=== PATIENT | female | born 1990 | race African-American/Black ===

== ENCOUNTER 2020-02-26 19:38 | Emergency (ER) | payer MEDICAID, SELFPAY ==
[2020-02-26] MEDS ORDERED: Morphine 4 MG/ML VIAL ONE (20:08)
[2020-02-26] MEDS ORDERED: Ondansetron PF 4 MG/2 ML Vial ONE (20:08)
[2020-02-26] MEDS ORDERED: Ketorolac Tromethamine 30 MG/ML VIAL ONE (20:08)
[2020-02-26] MEDS ORDERED: diphenhydrAMINE 50 MG/ML VIAL ONE (20:11)
[2020-02-26] MEDS ORDERED: Haloperidol Lactate 5 MG/ML VIAL ONE (20:11)
[2020-02-26 20:56] LABS: Bacteria/HPF 3+ HPF (None Seen); Bilirubin Negative (Negative); Blood, Urine 3+ (Negative); Clarity Clear (Clear); Glucose, Urine (Dipstick) Normal (Negative); Ketone, Urine Negative (Negative); Leukocyte 75 Leu/uL (Negative); Mucous/LPF Rare LPF (<2+); Nitrite 2+ (Negative); Pregnancy Test - Urine (BHCG) Negative (Negative); Pregu Control Background? CLEAR/WHITE (CLR/WHITE); Pregu Control Bar Appear? YES (CONTROL BAR); Protein, Urine (Dipstick) 20 mg/dL (Neg-Trace); RBC/HPF 21-50 HPF (0-3); Specific Gravity 1.024 (1.002-1.036); Specific Gravity, Urine 1.024 (1.002-1.036); Squamous Epithelial 0-3 HPF (0-3); Urobilinogen Normal mg/dL (Less than 2); WBC/HPF 21-50 HPF (0-3); pH, Urine 7.5 (5.0-9.0)
[2020-02-26 21:04] LABS: Amphetamine Not Detected (NotDetected); Barbiturates Screen Not Detected (NotDetected); Benzodiazepine Screen Not Detected (NotDetected); Cocaine Metabolite Screen Not Detected (NotDetected); Medtox Reader # READER 4; Methadone Not Detected (NotDetected); Methamphetamine Not Detected (NotDetected); Opiate Screen Not Detected (NotDetected); Oxycodone Screen Not Detected (NotDetected); Phencyclidine (PCP) Not Detected (NotDetected); THC/Cannabinoid Screen Detected (NotDetected); Tricyclic Screen Not Detected (NotDetected)
[2020-02-26 21:05] LABS: Medtox Control Line Valid? VALID (VALID)
--- NOTE | 2020-02-26 21:08 | RAD ---
TWO VIEWS CHEST: 01/30/20 PROVIDED CLINICAL HISTORY: Chest pain. FINDINGS: Cardiac and mediastinal silhouette is within normal limits. There is no focal consolidation evident. There is a small right pneumothorax. No pleural fluid is evident. IMPRESSION: Small right pneumothorax. POS: [facility]
[2020-02-26 21:16] LABS: #Basophils 0.1 thou/uL (0.0-0.2); #Lymphocytes 1.6 thou/uL (1.20-3.40); #Monocytes 0.4 thou/uL (0.11-0.59); #Neutrophils 8.7 thou/uL (1.40-6.50); %Basophils 0.5 % (0.0-1.0); %Eosinophils 0.4 % (0.0-10.0); %Lymphocytes 14.9 % (21.0-51.0); %Monocytes 3.6 % (0.0-10.0); %Neutrophils 80.5 % (42.0-75.0); Hemoglobin 12.5 g/dL (12.0-16.0); Mean Corpuscular HGB CONC 32.5 g/dL (32.0-36.0); Mean Corpuscular Hemoglobin 30.4 pg (27.0-31.0); Mean Corpuscular Volume 93.6 fL (78.0-98.0); Mean Platelet Volume 9.2 fL (7.4-10.4); Platelet Count 185 thou/uL (130-400); RBC Distribution Width 13.6 % (11.5-14.5); Red Blood Cell (RBC) Count 4.11 mill/uL (4.20-5.40); White Blood Cell (WBC) Count 10.9 thou/uL (4.8-10.8)
[2020-02-26] MEDS ORDERED: cefTRIAXone\\ROCEPHIN 1 GM VIAL ONE (21:20)
[2020-02-26] MEDS ORDERED: Sodium Chloride 0.9% 100 ML ONE (21:20)
[2020-02-26 21:21] LABS: BHCG - Serum Negative (NEGATIVE); Pregs Control Background? CLEAR/WHITE (CLR/WHITE); Pregs Control Bar Appear? YES (CONTROL BAR)
[2020-02-26 21:37] LABS: ALT (SGPT) 7 U/L (8-55); AST (SGOT) 10 U/L (5-34); Albumin 3.4 g/dL (3.5-5.0); Alkaline Phosphatase 47 U/L (40-110); Anion Gap 12 mmol/L (10-20); BUN (Urea Nitrogen) 11 mg/dL (7.0-18.7); Bilirubin, Total 0.2 mg/dL (0.2-1.2); Calc. Creatinine Clearance 0 mL/min (70-130); Calcium 7.8 mg/dL (7.8-10.44); Carbon Dioxide 24 mmol/L (22-29); Chloride 110 mmol/L (98-107); Globulin 2.1 g/dL (2.4-3.5); Glucose 94 mg/dL (70-105); Lipase 8 U/L (8-78); Protein, Total 5.5 g/dL (6.0-8.3); Sodium 142 mmol/L (136-145)
[2020-02-26 21:38] LABS: Acetaminophen Less than 6.0 mcg/mL (10.0-30.0); Alcohol Less than 10 mg/dL (Less than 10); Salicylate Less than 8.0 mg/dL (15.0-30.0)
--- NOTE | 2020-02-26 22:40 | ULT ---
RIGHT UPPER QUADRANT ULRASOUND: 02/26/20 PROVIDED CLINICAL HISTORY: Abdominal pain. FINDINGS: The visualized pancreas and IVC appear normal. The liver demonstrates no mass or intrahepatic biliary ductal dilatation. The common duct is not dilated. The gallbladder demonstrates no stones, wall thic kening or pericholecystic fluid. Right kidney demonstrates no hydronephrosis or mass. IMPRESSION: No evidence for an acute process. POS: [facility]
--- NOTE | 2020-02-27 07:06 | CT ---
CT PULMONARY ANGIOGRAM WITH IV CONTRAST AND 3D MIP RECONSTRUCTIONS: DATE: 02/26/2020. PROVIDED CLINICAL HISTORY: Chest pain. FINDINGS: There is no evidence for central or segmental pulmonary embolus. There is a small right pneumothorax . There is no evidence for pleural fluid or left pneumothorax. The airway appears patent and of nor mal caliber. The lungs are free of significant opacity. There is no evidence for thoracic lymph nod e enlargement. The visualized portions of the upper abdomen appear unremarkable. The osseous structures demonstrate no concerning lytic or blastic lesions. IMPRESSION: 1. No evidence for central or segmental pulmonary embolus. 2. Small right pneumothorax. POS: [facility]
--- NOTE | 2020-02-27 08:02 | RAD ---
PRELIMINARY REPORT/DIRECT RADIOLOGY/EMERGENCY AFTER HOURS PROCEDURE: EXAM: XR Chest, 1 View. CLINICAL HISTORY: F27, SMALL RIGHT PNEUMO SEEN, PATIENT WAS PLACED ON OXYGEN THERAPY. COMPARISON: [facility] - XR CHEST PA LAT STANDARD - 02/26/2020 08:17 PM [employer]ACHINE [employer] FINDINGS: LUNGS AND PLEURA: The lungs are clear. A trace right-sided pneumothorax appears to be unchanged. HEART AND MEDIASTINUM: The heart size and mediastinal contours are normal. BONES: No acute osseous abnormality. IMPRESSION: Stable trace right-sided pneumothorax ELECTRONICALLY SIGNED BY: Catrachito Quiros MD Feb 27, 2020 3:44:18 AM [employer] FINAL REPORT: FRONTAL CHEST RADIOGRAPH DATE: 02/27/2020. COMPARISON: 02/26/2020. HISTORY: Reevaluate right pneumothorax. FINDINGS: There is a very small subtle stable apical pneumothorax on the right. No left-sided pneumothorax is s een. No focal consolidation or alveolar edema. IMPRESSION: Persistent very small right apical pneumothorax. Transcribed Date/Time: 02/27/2020 8:39 AM
== END 2020-02-27 04:34 | disposition home or self-care (01) ==
LOC: ERS 19:38
DX: J93.9 Pneumothorax, unspecified (principal); N39.0 Urinary tract infection, site not specified; F17.210 Nicotine dependence, cigarettes, uncomplicated
CPT/HCPCS: 36415; 71045; 71046; 71275; 76705; 80053; 80306; 80307; 81003; 81015; 81025; 83690; 84484; 84703; 85025; 93005; 96365; 96375; J0696; J1200; J1630; J1885; J2270; J2405; J3490

== ENCOUNTER 2024-04-26 15:47 | Emergency (ER) | payer MEDICAID, OTHER | END 2024-04-26 20:20 | disposition home or self-care (01) | LOC: ERS 15:47 | DX: J01.90 Acute sinusitis, unspecified (principal); B96.89 Other specified bacterial agents as the cause of diseases classified elsewhere; F17.210 Nicotine dependence, cigarettes, uncomplicated | CPT/HCPCS: 87428; 99283 ==